=== PATIENT | female | born 1930 | race Caucasian/White ===

== ENCOUNTER → 2018-11-24 | Outpatient (CLI) | payer MEDICARE, OTHER ==
[~2018-11-24] MED LIST: FAMO20 PO; LISI5 PO; NAPR500 PO; OMEP20ER PO; OMEPRAZOLE20 MG PO; PANT20; PANT40 PO; PRED10 PO; Prinivil10 MG PO; RXPROM25 PO
== END | disposition home or self-care (01) ==
LOC: LAB SHORT 10:45 → LAB 10:45
DX: R30.0 Dysuria (principal)
CPT/HCPCS: 87077; 87086; 87186

== ENCOUNTER → 2019-02-03 | Outpatient (CLI) | payer MEDICARE, OTHER ==
[~2019-02-03] MED LIST changes: +KEFLEX500 MG PO
== END ==
LOC: LAB SHORT 21:48 → LAB 21:48
DX: R30.0 Dysuria (principal)
CPT/HCPCS: 87077; 87086; 87186

== ENCOUNTER 2020-07-30 17:16 | Emergency (ER) | payer MEDICARE, OTHER ==
[~2020-07-30] VITALS: Ht 154.9 cm; Wt 58.5 kg
[2020-07-30 18:31] LABS: Source, Urine Catheter
[2020-07-30 18:33] LABS: Appearance, Urine Cloudy (Clear); Bilirubin, Urine Neg (Neg); Blood, Urine 3+ (Neg); Color, Urine Yellow (P-Yellow); Glucose Qualitative, Urine Neg (Neg); Ketones, Urine Neg (Neg); Leukocyte Esterase, Urine 3+ (Neg); Nitrite, Urine Pos (Neg); Protein, Urine 2+ (Neg); Specific Gravity, Urine 1.015 (1.003-1.022); Urobilinogen, Urine NORM (Normal)
[2020-07-30 18:38] LABS: BASOPHILS ABSOLUTE AUTO 0.01 K/mm3 (0.00-0.23); BASOPHILS PERCENT AUTO 0 % (0-2); EOSINOPHILS ABSOLUTE AUTO 0.01 K/mm3 (0.00-0.68); EOSINOPHILS PERCENT AUTO 0 % (0-6); Hematocrit 29.1 % (33.0-51.0); Hemoglobin 9.9 g/dL (11.5-16.0); IMMATURE GRAN ABSOLUTE AUTO 0.03 K/mm3 (0.00-0.10); IMMATURE GRAN PERCENT AUTO 1 % (0-1); LYMPHOCYTES ABSOLUTE AUTO 0.45 K/mm3 (0.84-5.20); LYMPHOCYTES PERCENT AUTO 10 % (21-46); MONOCYTES ABSOLUTE AUTO 0.64 K/mm3 (0.16-1.47); MONOCYTES PERCENT AUTO 14 % (4-13); Mean Corpuscular HGB 30.3 pg (26.0-34.0); Mean Corpuscular Volume 89 fL (80-100); Mean Platelet Volume 10.1 fL (9.1-12.4); NEUTROPHILS ABSOLUTE AUTO 3.44 K/mm3 (1.96-9.15); NEUTROPHILS PERCENT AUTO 75 % (41-73); Platelet Count 126 K/mm3 (150-400); RDW Coefficient Variation 14.5 % (11.7-14.2); RDW Standard Deviation 47.7 fL (35.1-46.3); Red Blood Cell Count 3.27 M/mm3 (3.80-5.20); White Blood Cell Count 4.58 K/mm3 (4.00-11.30)
[2020-07-30] MEDS ORDERED: FUROSEMIDE20 MG PO (18:49)
[2020-07-30] MEDS ORDERED: Lisinopril10 MG PO (18:49)
[2020-07-30 18:57] LABS: White Blood Cells, Urine 50-100 /hpf (0-5)
[2020-07-30 18:58] LABS: Bacteria Many /hpf; Squamous Epithelial Cells Rare /hpf (Few)
[2020-07-30 18:59] LABS: Albumin, Blood 2.9 g/dL (3.4-5.0); Albumin/Globulin Ratio 0.8 (0.8-1.8); Bilirubin, Total 0.4 mg/dL (0.1-1.0); Bun/Creatinine Ratio 31.5 (12.0-20.0); Calcium, Blood 8.7 mg/dL (8.5-10.1); Creatinine, Blood 1.84 mg/dL (0.40-1.00); Globulin, Blood 3.6 g/dL (2.2-4.0); Potassium, Blood 4.4 mmol/L (3.5-5.5); Total Protein, Blood 6.5 g/dL (6.4-8.2)
[2020-07-30] MEDS ORDERED: CEPH500 PO (20:07)
== END 2020-07-30 21:22 | disposition home or self-care (01) ==
LOC: ER 17:16
PROVIDERS: Emergency Medicine
DX: M25.521 Pain in right elbow (principal); M25.551 Pain in right hip; N39.0 Urinary tract infection, site not specified; Z79.899 Other long term (current) drug therapy; W01.0XXA Fall on same level from slipping, tripping and stumbling without subsequent striking against object, initial encounter
CPT/HCPCS: 51702; 73030; 73070; 73502; 73562-RT; 80053; 81001; 85025; 87077; 87086; 87186; 96365-59; 99284-25; J0696

== ENCOUNTER 2020-07-31 09:41 | Emergency (ER) | payer MEDICARE, OTHER ==
[~2020-07-31] VITALS: Ht 162.6 cm; Wt 54.4 kg
[~2020-07-31 09:41] MED LIST changes: +CEPH500 PO; +FUROSEMIDE20 MG PO; +Lisinopril10 MG PO
[2020-07-31 10:51] LABS: BASOPHILS PERCENT AUTO 0 % (0-2); EOSINOPHILS ABSOLUTE AUTO 0.01 K/mm3 (0.00-0.68); EOSINOPHILS PERCENT AUTO 0 % (0-6); Hematocrit 29.2 % (33.0-51.0); Hemoglobin 9.6 g/dL (11.5-16.0); IMMATURE GRAN ABSOLUTE AUTO 0.03 K/mm3 (0.00-0.10); IMMATURE GRAN PERCENT AUTO 1 % (0-1); LYMPHOCYTES ABSOLUTE AUTO 0.41 K/mm3 (0.84-5.20); LYMPHOCYTES PERCENT AUTO 10 % (21-46); MONOCYTES ABSOLUTE AUTO 0.58 K/mm3 (0.16-1.47); MONOCYTES PERCENT AUTO 14 % (4-13); Mean Corpuscular HGB 29.4 pg (26.0-34.0); Mean Corpuscular HGB Conc 32.9 g/dL (31.5-36.5); Mean Corpuscular Volume 89 fL (80-100); Mean Platelet Volume 10.4 fL (9.1-12.4); NEUTROPHILS ABSOLUTE AUTO 3.16 K/mm3 (1.96-9.15); NEUTROPHILS PERCENT AUTO 76 % (41-73); Platelet Count 140 K/mm3 (150-400); RDW Coefficient Variation 14.6 % (11.7-14.2); RDW Standard Deviation 47.5 fL (35.1-46.3); Red Blood Cell Count 3.27 M/mm3 (3.80-5.20); White Blood Cell Count 4.19 K/mm3 (4.00-11.30)
[2020-07-31 11:09] LABS: Alanine Aminotransfer (ALT/SGP 25 U/L (12-78); Albumin, Blood 2.8 g/dL (3.4-5.0); Albumin/Globulin Ratio 0.8 (0.8-1.8); Alk Phos 70 U/L (50-136); Anion Gap 6 mmol/L (6-16); Aspartate Aminotrans (AST/SGOT 26 U/L (12-37); Bilirubin, Total 0.3 mg/dL (0.1-1.0); Blood Urea Nitrogen 51 mg/dL (8-24); Bun/Creatinine Ratio 29.5 (12.0-20.0); CO2, Blood 24 mmol/L (21-32); Calcium, Blood 8.5 mg/dL (8.5-10.1); Chloride, Blood 102 mmol/L (98-108); Creatinine, Blood 1.73 mg/dL (0.40-1.00); Globulin, Blood 3.6 g/dL (2.2-4.0); Glomerular Filtration Rate 30 (60-); Glucose, Blood 112 mg/dL (70-99); Potassium, Blood 4.3 mmol/L (3.5-5.5); Sodium, Blood 132 mmol/L (136-145); Total Protein, Blood 6.4 g/dL (6.4-8.2); Troponin I <0.015 ng/mL (0.000-0.040)
== END 2020-07-31 12:40 | disposition home or self-care (01) ==
LOC: ER 09:41
PROVIDERS: Emergency Medicine
DX: S00.83XA Contusion of other part of head, initial encounter (principal); Z79.899 Other long term (current) drug therapy; W01.10XA Fall on same level from slipping, tripping and stumbling with subsequent striking against unspecified object, initial encounter
CPT/HCPCS: 80053; 84484; 85025; 93005; 93010; 96365; 99285-25; J0696; J7030

== ENCOUNTER 2020-08-28 21:11 | Inpatient (IN) | payer MEDICARE, OTHER ==
[~2020-08-28] VITALS: Ht 167.6 cm; Wt 58.5 kg
[2020-08-28] MEDS ORDERED: PANT20 PO (21:26)
[2020-08-28 21:36] LABS: BASOPHILS ABSOLUTE AUTO 0.01 K/mm3 (0.00-0.23); BASOPHILS PERCENT AUTO 0 % (0-2); EOSINOPHILS ABSOLUTE AUTO 0.07 K/mm3 (0.00-0.68); EOSINOPHILS PERCENT AUTO 3 % (0-6); Hematocrit 29.9 % (33.0-51.0); IMMATURE GRAN ABSOLUTE AUTO 0.01 K/mm3 (0.00-0.10); IMMATURE GRAN PERCENT AUTO 0 % (0-1); LYMPHOCYTES ABSOLUTE AUTO 0.56 K/mm3 (0.84-5.20); LYMPHOCYTES PERCENT AUTO 24 % (21-46); MONOCYTES ABSOLUTE AUTO 0.39 K/mm3 (0.16-1.47); MONOCYTES PERCENT AUTO 17 % (4-13); Mean Corpuscular HGB 29.8 pg (26.0-34.0); Mean Corpuscular HGB Conc 33.4 g/dL (31.5-36.5); Mean Corpuscular Volume 89 fL (80-100); Mean Platelet Volume 9.6 fL (9.1-12.4); NEUTROPHILS PERCENT AUTO 56 % (41-73); Platelet Count 106 K/mm3 (150-400); RDW Coefficient Variation 15.1 % (11.7-14.2); RDW Standard Deviation 49.2 fL (35.1-46.3); Red Blood Cell Count 3.36 M/mm3 (3.80-5.20); White Blood Cell Count 2.34 K/mm3 (4.00-11.30)
[2020-08-28 21:47] LABS: Albumin, Blood 3.2 g/dL (3.4-5.0); Bilirubin, Total 0.4 mg/dL (0.1-1.0); Calcium, Blood 8.5 mg/dL (8.5-10.1); Creatinine, Blood 1.24 mg/dL (0.40-1.00); Globulin, Blood 3.1 g/dL (2.2-4.0); Potassium, Blood 3.9 mmol/L (3.5-5.5); Total Protein, Blood 6.3 g/dL (6.4-8.2)
[2020-08-28] MEDS ORDERED: Vitamin D2000 UNIT PO (22:41)
[2020-08-28] MEDS ORDERED: TAGRISSO80 MG PO (22:41)
[2020-08-29 04:08] LABS: BASOPHILS PERCENT AUTO 0 % (0-2); EOSINOPHILS ABSOLUTE AUTO 0.02 K/mm3 (0.00-0.68); EOSINOPHILS PERCENT AUTO 1 % (0-6); Hematocrit 31.9 % (33.0-51.0); Hemoglobin 10.6 g/dL (11.5-16.0); IMMATURE GRAN ABSOLUTE AUTO 0.01 K/mm3 (0.00-0.10); IMMATURE GRAN PERCENT AUTO 0 % (0-1); LYMPHOCYTES ABSOLUTE AUTO 0.56 K/mm3 (0.84-5.20); LYMPHOCYTES PERCENT AUTO 18 % (21-46); MONOCYTES PERCENT AUTO 13 % (4-13); Mean Corpuscular HGB 29.8 pg (26.0-34.0); Mean Corpuscular HGB Conc 33.2 g/dL (31.5-36.5); Mean Corpuscular Volume 90 fL (80-100); Mean Platelet Volume 10.1 fL (9.1-12.4); NEUTROPHILS ABSOLUTE AUTO 2.14 K/mm3 (1.96-9.15); NEUTROPHILS PERCENT AUTO 68 % (41-73); Platelet Count 89 K/mm3 (150-400); RDW Coefficient Variation 15.1 % (11.7-14.2); RDW Standard Deviation 49.6 fL (35.1-46.3); Red Blood Cell Count 3.56 M/mm3 (3.80-5.20); White Blood Cell Count 3.13 K/mm3 (4.00-11.30)
[2020-08-29 04:26] LABS: Albumin, Blood 3.2 g/dL (3.4-5.0); Bilirubin, Total 0.4 mg/dL (0.1-1.0); Bun/Creatinine Ratio 23.7 (12.0-20.0); Calcium, Blood 8.5 mg/dL (8.5-10.1); Creatinine, Blood 1.18 mg/dL (0.40-1.00); Globulin, Blood 3.1 g/dL (2.2-4.0); Potassium, Blood 3.8 mmol/L (3.5-5.5); Total Protein, Blood 6.3 g/dL (6.4-8.2)
[2020-08-29 06:02] LABS: SARS-Cov-2 (COVID-19) PCR, MMC NEGATIVE (NEGATIVE)
[2020-08-29 06:30] LABS: Source, Urine Catheter
[2020-08-29 06:39] LABS: Appearance, Urine Clear (Clear); Bilirubin, Urine Neg (Neg); Blood, Urine 4+ (Neg); Color, Urine Yellow (P-Yellow); Glucose Qualitative, Urine Neg (Neg); Ketones, Urine Neg (Neg); Leukocyte Esterase, Urine Neg (Neg); Nitrite, Urine Neg (Neg); Protein, Urine 2+ (Neg); Urobilinogen, Urine NORM (Normal)
[2020-08-29 07:05] LABS: Red Blood Cells, Urine TNTC /hpf (0-2)
[2020-08-29 07:06] LABS: Squamous Epithelial Cells Rare /hpf (Few)
[2020-08-29 07:07] LABS: Bacteria Rare /hpf; Hyaline Casts Rare /lpf (0-2); White Blood Cells, Urine Rare /hpf (0-5)
[2020-08-29 07:08] LABS: Mucus Light (0-Heavy)
[2020-08-29] MEDS ORDERED: B 12 (07:51)
[2020-08-29] MEDS ORDERED: CALCIUM (07:52)
--- NOTE | 2020-08-29 08:15 | NUR ---
SUMMARY ADMIT FOR ORTHO CX TODAY AND POSSIBLE OR.DAUGHTER IN LAW AT BEDSIDE. SUPPORTIVE. PT HAS HX DEMENTIA AND LIVES WITH SON AND HIS CURRENTLY. SON AND DAUGHTER IN LAW WILL BE TO HOSPITAL IN AM TO SPEAK WITH DOCTORS AND ASSSIT IN DECISIONS FOR PT REGARDING SURGERY .
--- NOTE | 2020-08-29 17:16 | NUR ---
PT TO SDS FROM ROOM 214. REPORTS NPO SINCE 08/28 AT 1700. MEDICATED c FENT BRANCH SPECIALIST, PLACED ON . History, Chart, Medications and Allergies reviewed before start of procedure. Lungs clear T/O to Auscultation.
--- NOTE | 2020-08-29 18:38 | NUR ---
08/29/20 183 Satnam Matias PATIENT ARRIVED TO OR WITH REVELES CATH DRAINING SILVIA COLORED URINE WITH A STREAK OF BLOOD IN THE LINE. BAG EMPTIED FOR 600 ML
--- NOTE | 2020-08-29 19:16 | NUR ---
SHIFT SUMMARY PT SOMEWHAT CONFUSED AND RESTING IN BED DURING MORNING. WENT TO OR WITH DR BARBOUR FOR RIGHT HIP FX REPAIR. RIGHT LEG EXTERNALLY ROTATED AND SHORTER THAN LEFT. MEDICATED WITH IV PAIN MEDS FOR PAIN. IV FLUIDS RUNNING. REVELES IN PLACE. MEPILEX PLACED TO SACRUM. FAMILY IN ROOM. REPORT GIVEN TO POWERHOUSE ENGINEER RN.
--- NOTE | 2020-08-29 22:03 | NUR ---
PT ARRIVED TO ICU ON 10LPM O2 VIA NON-REBREATHER c O2 SATS OF 98%. PT FULLY ALERT, MOVING ALL EXTREMITIES, DENIES PAIN. O2 TITRATED DOWN TO NC @ LPM c O2 SATS >90%. PT USING IC AND FLUTTER VALVE. TRANSFERRED TO ROOM 214.
--- NOTE | 2020-08-30 04:30 | NUR ---
SHIFT SUMMARY POD#1 RIGHT HEMIARTHROPLASTY. CONFUSED/COOPERATIVE. PT DENIES DISCOMFORT AT REST, DENIES PAIN MEDICATIONS. NO NAUSEA/EMESIS. AQUACEL TO RIGHT HIP C/D/I. MOVES TOES WELL BLE, DENIES N/T, CAP REFILL BRISK. O2 DOWN TO 2L VIA NC, CONTINUE TO ENCOURAGE PT TO KEEP IN NOSE + DEEP BREATHING / INCENTIVE SPIROMETRY USE. BED ALARM ON FOR SAFETY. CALL LIGHT IN REACH. PT RESTING INTERMITTENTLY AT THIS TIME.
[2020-08-30 09:52] LABS: BASOPHILS PERCENT AUTO 0 % (0-2); EOSINOPHILS PERCENT AUTO 0 % (0-6); Hematocrit 31.2 % (33.0-51.0); Hemoglobin 10.2 g/dL (11.5-16.0); IMMATURE GRAN ABSOLUTE AUTO 0.03 K/mm3 (0.00-0.10); IMMATURE GRAN PERCENT AUTO 1 % (0-1); LYMPHOCYTES ABSOLUTE AUTO 0.56 K/mm3 (0.84-5.20); LYMPHOCYTES PERCENT AUTO 9 % (21-46); MONOCYTES ABSOLUTE AUTO 0.47 K/mm3 (0.16-1.47); MONOCYTES PERCENT AUTO 7 % (4-13); Mean Corpuscular HGB 29.7 pg (26.0-34.0); Mean Corpuscular HGB Conc 32.7 g/dL (31.5-36.5); Mean Corpuscular Volume 91 fL (80-100); Mean Platelet Volume 10.1 fL (9.1-12.4); NEUTROPHILS ABSOLUTE AUTO 5.35 K/mm3 (1.96-9.15); NEUTROPHILS PERCENT AUTO 84 % (41-73); Platelet Count 94 K/mm3 (150-400); RDW Coefficient Variation 15.4 % (11.7-14.2); RDW Standard Deviation 51.2 fL (35.1-46.3); Red Blood Cell Count 3.44 M/mm3 (3.80-5.20); White Blood Cell Count 6.41 K/mm3 (4.00-11.30)
[2020-08-30 10:15] LABS: Albumin, Blood 2.8 g/dL (3.4-5.0); Anion Gap 5 mmol/L (6-16); Blood Urea Nitrogen 24 mg/dL (8-24); CO2, Blood 27 mmol/L (21-32); Calcium, Blood 8.3 mg/dL (8.5-10.1); Chloride, Blood 106 mmol/L (98-108); Creatinine, Blood 1.09 mg/dL (0.40-1.00); Glomerular Filtration Rate 50 (60-); Glucose, Blood 139 mg/dL (70-99); Phosphorus, Blood 2.8 mg/dL (2.5-4.9); Potassium, Blood 3.5 mmol/L (3.5-5.5); Sodium, Blood 138 mmol/L (136-145)
--- NOTE | 2020-08-30 17:24 | NUR ---
SHIFT SUMMARY PT POD 1 R HIP FX REPAIR. AQUACEL DRESSING TO R HIP C/D/I. PT MEDICATED ONCE FOR PAIN PER EMAR. REVELES REMOVED BY PT THIS AM, UNABLE TO VOID. BLADDER SCAN SHOWED GREATER THAN 400, STRAIGHT CATH DONE WITH 425ML DARK YELLOW URINE DRAINED.
--- NOTE | 2020-08-31 01:26 | NUR ---
URINE RETENTION BLADDER SCAN NOTED, PT REFUSING STRAIGHT CATH AT THIS TIME. PT THEN PROCEDED TO TRY AND GET OOB W/O ASSISTANCE. RESISTANT TO CARE + USE OF GATE BELT. AFTER MUCH CONVERSATION, PT RELUCTANTLY AGREED TO GAIT BELT USE. UP TO BSC WITH 2 PERSON MODERATE ASSIST, BACK TO BED. MODERATE VOID IN ATTENDS + 250cc VOID IN BSC. BED ALARM FOR SAFETY. CALL LIGHT IN REACH.
--- NOTE | 2020-08-31 05:34 | NUR ---
SHIFT SUMMARY POD#2. CONFUSED/COOPERATIVE AT TIMES. DISCOMFORT DECRASED WITH TYLENOL Q6H + X1 NORCO THIS AM FOR BREAKTHROUGH. NO NAUSEA/EMESIS. DRESSING TO RIGHT HIP C/D/I. PPP, DENIES N/T BLE, MOVES ALL TOES WELL. PT CONFUSED THIS NOC SHIFT, REFUSING CARE AT TIMES, BED ALARM ON FOR SAFETY. VSS, ON RA, RESPIRATIONS EVEN/UNLABORED. URINE RETENTION NOTED, PT REFUSING TO BE STRAIGHT CATHED EARLIER THIS SHIFT, NOW GETTING UP TO BSC FREQUENTLY THIS AM WITH 100 TO 250cc VOIDS, WILL BLADDER SCAN THIS AM TO CONFIRM ADEQUATE VOIDS. PT CURRENTLY UP TO BSC AT THIS TIME WITH TELECOMMUNICATION TOWER TECHNICIAN IN ROOM.
[2020-08-31 06:51] LABS: BASOPHILS PERCENT AUTO 0 % (0-2); EOSINOPHILS ABSOLUTE AUTO 0.02 K/mm3 (0.00-0.68); EOSINOPHILS PERCENT AUTO 1 % (0-6); Hematocrit 27.8 % (33.0-51.0); Hemoglobin 9.2 g/dL (11.5-16.0); IMMATURE GRAN ABSOLUTE AUTO 0.02 K/mm3 (0.00-0.10); IMMATURE GRAN PERCENT AUTO 1 % (0-1); LYMPHOCYTES ABSOLUTE AUTO 0.38 K/mm3 (0.84-5.20); LYMPHOCYTES PERCENT AUTO 11 % (21-46); MONOCYTES PERCENT AUTO 12 % (4-13); Mean Corpuscular HGB 29.6 pg (26.0-34.0); Mean Corpuscular HGB Conc 33.1 g/dL (31.5-36.5); Mean Corpuscular Volume 89 fL (80-100); Mean Platelet Volume 10.7 fL (9.1-12.4); NEUTROPHILS PERCENT AUTO 76 % (41-73); Platelet Count 92 K/mm3 (150-400); RDW Coefficient Variation 15.4 % (11.7-14.2); RDW Standard Deviation 50.5 fL (35.1-46.3); Red Blood Cell Count 3.11 M/mm3 (3.80-5.20); White Blood Cell Count 3.42 K/mm3 (4.00-11.30)
--- NOTE | 2020-08-31 18:01 | NUR ---
SHIFT SUMMARY PT POD 2 R HIP REPAIR. AQUACEL DRESSING C/D/I, NO REDNESS PRESENT AROUND DRESSING, SMALL AMT FIRMNESS PRESENT ABOVE BANDAGE. PT DID HAVE TEMP 101.0 ORAL THIS EVENING WITH HR 117, NO PREVIOUS DOCUMENTED TEMP OR TACHY HR. MESSAGE LEFT FOR MD TO CALL. PT CONFUSED AND AGGITATED T/O SHIFT, ATTEMPTING TO GET UP AND WALK, DOES NOT UNDERSTAND OR FOLLOW WEIGHT BEARING PRECAUTIONS. PT VOIDING SMALL AMTS AT A TIME T/O SHIFT.
[2020-09-01 04:50] LABS: BASOPHILS PERCENT AUTO 0 % (0-2); EOSINOPHILS ABSOLUTE AUTO 0.05 K/mm3 (0.00-0.68); EOSINOPHILS PERCENT AUTO 2 % (0-6); Hematocrit 28.2 % (33.0-51.0); Hemoglobin 9.3 g/dL (11.5-16.0); IMMATURE GRAN ABSOLUTE AUTO 0.03 K/mm3 (0.00-0.10); IMMATURE GRAN PERCENT AUTO 1 % (0-1); LYMPHOCYTES ABSOLUTE AUTO 0.46 K/mm3 (0.84-5.20); LYMPHOCYTES PERCENT AUTO 16 % (21-46); MONOCYTES ABSOLUTE AUTO 0.41 K/mm3 (0.16-1.47); MONOCYTES PERCENT AUTO 15 % (4-13); Mean Corpuscular HGB 29.8 pg (26.0-34.0); Mean Corpuscular Volume 90 fL (80-100); Mean Platelet Volume 9.9 fL (9.1-12.4); NEUTROPHILS ABSOLUTE AUTO 1.85 K/mm3 (1.96-9.15); NEUTROPHILS PERCENT AUTO 66 % (41-73); Platelet Count 99 K/mm3 (150-400); RDW Coefficient Variation 15.4 % (11.7-14.2); RDW Standard Deviation 50.9 fL (35.1-46.3); Red Blood Cell Count 3.12 M/mm3 (3.80-5.20)
[2020-09-01 05:05] LABS: Albumin, Blood 2.5 g/dL (3.4-5.0); Anion Gap 5 mmol/L (6-16); Blood Urea Nitrogen 22 mg/dL (8-24); Bun/Creatinine Ratio 21.6 (12.0-20.0); CO2, Blood 28 mmol/L (21-32); Calcium, Blood 8.5 mg/dL (8.5-10.1); Chloride, Blood 105 mmol/L (98-108); Creatinine, Blood 1.02 mg/dL (0.40-1.00); Glomerular Filtration Rate 54 (60-); Glucose, Blood 99 mg/dL (70-99); Phosphorus, Blood 2.3 mg/dL (2.5-4.9); Potassium, Blood 3.5 mmol/L (3.5-5.5); Sodium, Blood 138 mmol/L (136-145)
--- NOTE | 2020-09-01 05:43 | NUR ---
SHIFT SUMMARY POD#3 RIGHT HEMICOLECTOMY. CONFUSED/UNCOOPERATIVE WITH CARE AT TIMES. DISCOMFORT CONTROLLED WITH X1 TYLENOL THIS SHIFT. NO NAUSEA/EMESIS. DRESSING TO RIGHT HIP C/D/I. PT UP TO BSC TO VOID MULTIPLE TIMES THIS SHIFT, TTWB TO RLE. RESTED WELL WITH BLE ELEVATED IN RECLINER CHAIR WITH TAB ALARM + PRESSURE PAD ALARM FOR SAFETY. PT CONTINUES TO REFUSE BLADDER SCAN THIS AM, CONTINUE TO EDUCATED + ENCOURAGE COOPERATION WITH CARE.
--- NOTE | 2020-09-01 08:11 | NUR ---
OOB TO CHAIR, DENIES ANY PAIN OR ANY NUMBNESS OR TINGLING, VOIDED 100CC IN BSC THIS AM, PT EATING BREAKFAST, TAB ALARM IN PLACE, CONT. TO MONITOR FOR ANY CHANGES.
[2020-09-01 14:39] LABS: Source, Urine Clean Catch
[2020-09-01 14:57] LABS: Appearance, Urine Clear (Clear); Bilirubin, Urine Neg (Neg); Blood, Urine 1+ (Neg); Color, Urine Yellow (P-Yellow); Glucose Qualitative, Urine Neg (Neg); Ketones, Urine Neg (Neg); Leukocyte Esterase, Urine Neg (Neg); Nitrite, Urine Neg (Neg); Protein, Urine 1+ (Neg); Urobilinogen, Urine NORM (Normal)
[2020-09-01 15:08] LABS: Bacteria Few /hpf; Hyaline Casts 0-2 /lpf (0-2); Red Blood Cells, Urine 0-2 /hpf (0-2); Squamous Epithelial Cells Few /hpf (Few); White Blood Cells, Urine Rare /hpf (0-5)
--- NOTE | 2020-09-01 17:26 | NUR ---
SUMMARY 1 PERSON ASSIST TO BSC AND CHAIR, TOLERATED WELL, DENIES ANY PAIN, PT HAD A BM TODAY, DSG C/D/I, NO ACUTE CHANGES THIS SHIFT.
[2020-09-02 04:51] LABS: Hematocrit 26.8 % (33.0-51.0); Hemoglobin 8.7 g/dL (11.5-16.0); Mean Corpuscular HGB 29.1 pg (26.0-34.0); Mean Corpuscular HGB Conc 32.5 g/dL (31.5-36.5); Mean Corpuscular Volume 90 fL (80-100); Mean Platelet Volume 9.6 fL (9.1-12.4); Platelet Count 101 K/mm3 (150-400); RDW Coefficient Variation 15.3 % (11.7-14.2); RDW Standard Deviation 50.6 fL (35.1-46.3); Red Blood Cell Count 2.99 M/mm3 (3.80-5.20); White Blood Cell Count 2.08 K/mm3 (4.00-11.30)
[2020-09-02 05:15] LABS: Albumin, Blood 2.3 g/dL (3.4-5.0); Anion Gap 5 mmol/L (6-16); Blood Urea Nitrogen 25 mg/dL (8-24); Bun/Creatinine Ratio 25.4 (12.0-20.0); CO2, Blood 28 mmol/L (21-32); Calcium, Blood 8.2 mg/dL (8.5-10.1); Chloride, Blood 105 mmol/L (98-108); Creatinine, Blood 0.98 mg/dL (0.40-1.00); Glomerular Filtration Rate 57 (60-); Glucose, Blood 98 mg/dL (70-99); Phosphorus, Blood 2.6 mg/dL (2.5-4.9); Potassium, Blood 3.8 mmol/L (3.5-5.5); Sodium, Blood 138 mmol/L (136-145)
--- NOTE | 2020-09-02 06:10 | NUR ---
POD 4 S/P RIGHT ROM HIP REPAIR. PT VSS T/O NIGHT. DRESSING CDI. PAIN MGD W/TYLENOL W/REP RELIEF. PT UP TO BSC OOB W/FWW+1 ASSIST. NEEDS REMINDING OF WBS. PT FORGETFUL AT TIMES, IS PLEASANT AND COOPERATIVE W/CARE. BED ALARM ON FOR SAFETY. AWAITING SNF DC PLANNING.
--- NOTE | 2020-09-02 17:48 | NUR ---
SUMMARY UP TO CHAIR, DENIES ANY PAIN, TOLERATING DIET WELL, DENIES ANY NAUSEA, REPORTS FEELING BETTER, DSG C/D/I, UP TO CHAIR AND BSC W/ 1-2 PERSON ASSIST WITH CUEING, NO ACUTE CHANGES THIS SHIFT.
--- NOTE | 2020-09-03 04:32 | NUR ---
POD 5 S/P RIGHT ROM HIP REPAIR. PT VSS T/O NIGHT. PT WAS ANXIOUS AND AGITATED FIRST HALF OF SHIFT, IS MUCH MORE CALM AND COOPERATIVE THIS AM. DRESSING CDI. PAIN MGD W/TYLENOL. PT HAD NO C/O N/V, IS VOIDING URINE W/O DIFFICULTY. PT UP W/FWW+1 ASSIST, NEEDS REMINDING OF TT WBS. TAB AND CHAIR ALARMS ON. CONT TO AWAIT SNF PLANNING.
[2020-09-03 04:53] LABS: Hematocrit 27.8 % (33.0-51.0); Hemoglobin 9.1 g/dL (11.5-16.0); Mean Corpuscular HGB 29.4 pg (26.0-34.0); Mean Corpuscular HGB Conc 32.7 g/dL (31.5-36.5); Mean Corpuscular Volume 90 fL (80-100); Mean Platelet Volume 9.3 fL (9.1-12.4); Platelet Count 112 K/mm3 (150-400); RDW Coefficient Variation 15.3 % (11.7-14.2); RDW Standard Deviation 50.4 fL (35.1-46.3); Red Blood Cell Count 3.09 M/mm3 (3.80-5.20); White Blood Cell Count 2.09 K/mm3 (4.00-11.30)
[2020-09-03 05:18] LABS: Albumin, Blood 2.6 g/dL (3.4-5.0); Albumin/Globulin Ratio 0.8 (0.8-1.8); Bilirubin, Total 0.4 mg/dL (0.1-1.0); Bun/Creatinine Ratio 23.8 (12.0-20.0); Calcium, Blood 8.4 mg/dL (8.5-10.1); Creatinine, Blood 1.01 mg/dL (0.40-1.00); Globulin, Blood 3.2 g/dL (2.2-4.0); Potassium, Blood 3.3 mmol/L (3.5-5.5); Total Protein, Blood 5.8 g/dL (6.4-8.2)
--- NOTE | 2020-09-03 11:35 | NUR ---
STAT CONSULT STAT CONSULT FOR DR SAM FAXED TO ER ATTN CRISIS UNIT.
--- NOTE | 2020-09-03 16:55 | NUR ---
SHIFT SUMMARY PT PLEASANTLY CONFUSED THROUGHOUT SHIFT. SOMETIMES TRIES TO GET OUT OF CHAIR. TAB ALARM AND CHAIR ALARM IN PLACE. DOES NOT MAINTAIN TOE TOUCH WB. AQUACEL TO RIGHT HIP. TOLERATING REGULAR DIET AND FLUIDS. INCONTINENT OF URINE. WAITING FOR SNF PLACEMENT.
--- NOTE | 2020-09-04 05:34 | NUR ---
PT CONFUSED PER BASELINE. EASILY REDIRECTABLE. VSS ON RA. DENIES PAIN. UP TO BSC W/ FWW, GAITBELT, AND 2 PERSON ASSIST. PT IMPULSIVE, TAB AND BED ALARM IN PLACE. SLEEPING B/W CARE.
[2020-09-04 07:17] LABS: BASOPHILS PERCENT AUTO 0 % (0-2); EOSINOPHILS ABSOLUTE AUTO 0.05 K/mm3 (0.00-0.68); EOSINOPHILS PERCENT AUTO 3 % (0-6); Hematocrit 27.9 % (33.0-51.0); IMMATURE GRAN ABSOLUTE AUTO 0.02 K/mm3 (0.00-0.10); IMMATURE GRAN PERCENT AUTO 1 % (0-1); LYMPHOCYTES ABSOLUTE AUTO 0.41 K/mm3 (0.84-5.20); LYMPHOCYTES PERCENT AUTO 23 % (21-46); MONOCYTES ABSOLUTE AUTO 0.38 K/mm3 (0.16-1.47); MONOCYTES PERCENT AUTO 21 % (4-13); Mean Corpuscular HGB Conc 32.3 g/dL (31.5-36.5); Mean Corpuscular Volume 90 fL (80-100); Mean Platelet Volume 9.9 fL (9.1-12.4); NEUTROPHILS ABSOLUTE AUTO 0.94 K/mm3 (1.96-9.15); NEUTROPHILS PERCENT AUTO 52 % (41-73); Platelet Count 114 K/mm3 (150-400)
[2020-09-04 07:46] LABS: Bun/Creatinine Ratio 21.7 (12.0-20.0); Calcium, Blood 8.3 mg/dL (8.5-10.1); Creatinine, Blood 1.06 mg/dL (0.40-1.00); Magnesium, Blood 1.8 mg/dL (1.6-2.4); Potassium, Blood 3.7 mmol/L (3.5-5.5)
[2020-09-04 15:30] LABS: SARS-Cov-2 (COVID-19) PCR, MMC NEGATIVE (NEGATIVE)
--- NOTE | 2020-09-04 16:07 | NUR ---
REPORT CALLED TO KASSANDRA AT [facility]. NO FURTHER QUESTIONS AT THIS TIME.
--- NOTE | 2020-09-04 17:08 | NUR ---
PT LEFT VIA WHEELCHAIR TO [facility], BELONGINGS SENT WITH PT AND TEARER PRESS CLIPPING. EXTRA AQUACEL DRESSINGS SENT WITH PT. PT HAS BEEN 1-2 PERSON ASSIST WITH FWW DURING SHIFT. MULT BM TODAY, VOIDING WELL. TOLERATING PO WITH NO NAUSEA. DENIES PAIN DURING SHIFT. AQUACEL ON R HIP CDI. PLEASENTLY CONFUSED DURING SHIFT ATTEMPTS TO USE CALL LIGHT.
== END 2020-09-04 17:00 | DRG 521 ==
LOC: ER 21:11 → SURS 21:12
PROVIDERS: Emergency Medicine; Internal Medicine; Orthopaedic Surgery; ADMIT Internal Medicine
PROC: 0SRR0JZ Replacement of Right Hip Joint, Femoral Surface with Synthetic Substitute, Open Approach (ICD-10-PCS; principal; 2020-08-29 18:15)
DX: S72.001A Fracture of unspecified part of neck of right femur, initial encounter for closed fracture (principal); D61.810 Antineoplastic chemotherapy induced pancytopenia; J18.9 Pneumonia, unspecified organism; C34.90 Malignant neoplasm of unspecified part of unspecified bronchus or lung; Z20.822 Contact with and (suspected) exposure to COVID-19; I10 Essential (primary) hypertension; K21.9 Gastro-esophageal reflux disease without esophagitis; E11.9 Type 2 diabetes mellitus without complications; M81.0 Age-related osteoporosis without current pathological fracture; F03.90 Unspecified dementia, unspecified severity, without behavioral disturbance, psychotic disturbance, mood disturbance, and anxiety; R31.0 Gross hematuria; E83.39 Other disorders of phosphorus metabolism; E87.6 Hypokalemia; T45.1X5A Adverse effect of antineoplastic and immunosuppressive drugs, initial encounter; R09.02 Hypoxemia; Z90.49 Acquired absence of other specified parts of digestive tract; Z79.899 Other long term (current) drug therapy; W07.XXXA Fall from chair, initial encounter
CPT/HCPCS: 36415; 71045; 72170; 73502; 73552; 80048; 80053; 80069; 81001; 82947; 83735; 84145; 85025; 85027; 87040; 93005; 93010; 94760; 96374; 96375; 97116; 97162; 99285-25; A9270; C1713; C1776; C9113; J0171; J0461; J0690; J0735; J1100; J1650; J1885; J2175; J2270; J2370; J2405; J2704; J2795; J3010; J7030; J7120; U0004

== ENCOUNTER 2021-01-31 14:49 | Emergency (ER) | payer MEDICARE, OTHER ==
[~2021-01-31] VITALS: Ht 157.5 cm; Wt 63.5 kg
[~2021-01-31 14:49] MED LIST changes: +B 12; +CALCIUM; +PANT20 PO; +TAGRISSO80 MG PO; +Vitamin D2000 UNIT PO
[2021-01-31 16:05] LABS: Base Excess Venous 4.3 mmol/L; Bicarbonate Venous 27.1 mmol/L (24.0-30.0); PCO2 Venous 51.5 mmHg (38-42); PO2 Venous 44.3 mmHg (38-42); pH Blood Venous 7.37 (7.34-7.37)
[2021-01-31 16:08] LABS: BASOPHILS PERCENT AUTO 0 % (0-2); EOSINOPHILS PERCENT AUTO 2 % (0-6); Hemoglobin 10.5 g/dL (11.5-16.0); IMMATURE GRAN ABSOLUTE AUTO 0.02 K/mm3 (0.00-0.10); IMMATURE GRAN PERCENT AUTO 0 % (0-1); LYMPHOCYTES ABSOLUTE AUTO 1.05 K/mm3 (0.84-5.20); LYMPHOCYTES PERCENT AUTO 23 % (21-46); MONOCYTES ABSOLUTE AUTO 0.46 K/mm3 (0.16-1.47); MONOCYTES PERCENT AUTO 10 % (4-13); Mean Corpuscular HGB 28.5 pg (26.0-34.0); Mean Corpuscular HGB Conc 31.8 g/dL (31.5-36.5); Mean Corpuscular Volume 89 fL (80-100); Mean Platelet Volume 8.8 fL (9.1-12.4); NEUTROPHILS ABSOLUTE AUTO 3.04 K/mm3 (1.96-9.15); NEUTROPHILS PERCENT AUTO 65 % (41-73); Platelet Count 173 K/mm3 (150-400); RDW Coefficient Variation 16.3 % (11.7-14.2); RDW Standard Deviation 53.7 fL (35.1-46.3); Red Blood Cell Count 3.69 M/mm3 (3.80-5.20); White Blood Cell Count 4.67 K/mm3 (4.00-11.30)
[2021-01-31 16:25] LABS: Alanine Aminotransfer (ALT/SGP 23 U/L (12-78); Albumin, Blood 2.8 g/dL (3.4-5.0); Albumin/Globulin Ratio 0.7 (0.8-1.8); Alk Phos 112 U/L (50-136); Anion Gap 3 mmol/L (6-16); Aspartate Aminotrans (AST/SGOT 19 U/L (12-37); Bilirubin, Total 0.2 mg/dL (0.1-1.0); Blood Urea Nitrogen 35 mg/dL (8-24); Bun/Creatinine Ratio 25.2 (12.0-20.0); CO2, Blood 30 mmol/L (21-32); Calcium, Blood 8.3 mg/dL (8.5-10.1); Chloride, Blood 105 mmol/L (98-108); Creatinine, Blood 1.39 mg/dL (0.40-1.00); Globulin, Blood 4.2 g/dL (2.2-4.0); Glomerular Filtration Rate 36 (60-); Glucose, Blood 135 mg/dL (70-99); Potassium, Blood 4.1 mmol/L (3.5-5.5); Sodium, Blood 138 mmol/L (136-145); Troponin I <0.015 ng/mL (0.000-0.040)
[2021-01-31 16:42] LABS: Influenza A, PCR NEGATIVE (NEGATIVE); Influenza B, PCR NEGATIVE (NEGATIVE); Resp Syncytial Virus, PCR NEGATIVE (NEGATIVE); SARS-Cov-2 (COVID-19) PCR, MMC NEGATIVE (NEGATIVE)
[2021-01-31 17:48] LABS: Source, Urine Clean Catch
[2021-01-31 18:06] LABS: Bilirubin, Urine Neg (Neg); Blood, Urine 2+ (Neg); Color, Urine Yellow (P-Yellow); Glucose Qualitative, Urine Neg (Neg); Ketones, Urine Neg (Neg); Leukocyte Esterase, Urine 3+ (Neg); Nitrite, Urine Neg (Neg); Protein, Urine 2+ (Neg); Urobilinogen, Urine NORM (Normal); pH, Urine 6.5 (5.0-8.0)
[2021-01-31 19:23] LABS: Appearance, Urine Hazy (Clear); White Blood Cells, Urine 50-100 /hpf (0-5)
[2021-01-31 19:31] LABS: Bacteria Many /hpf; Squamous Epithelial Cells Few /hpf (Few)
== END 2021-01-31 20:50 | disposition home or self-care (01) ==
LOC: ER 14:49
PROVIDERS: Student in an Organized Health Care Education/Training Program
DX: R40.4 Transient alteration of awareness (principal); R79.89 Other specified abnormal findings of blood chemistry; D64.9 Anemia, unspecified; I10 Essential (primary) hypertension; K21.9 Gastro-esophageal reflux disease without esophagitis; E11.9 Type 2 diabetes mellitus without complications; Z20.822 Contact with and (suspected) exposure to COVID-19; Z91.013 Allergy to seafood; Z79.899 Other long term (current) drug therapy
CPT/HCPCS: 0241U; 70450; 71045; 80053; 81001; 82803; 83735; 84145; 84484; 85025; 93005; 93010; 99285-25; J7030

== ENCOUNTER 2021-05-29 01:13 | Emergency (ER) | payer MEDICARE, OTHER ==
[~2021-05-29] VITALS: Ht 170.2 cm; Wt 59.0 kg
== END 2021-05-29 04:42 ==
LOC: ER 01:13
DX: S61.215A Laceration without foreign body of left ring finger without damage to nail, initial encounter (principal); S61.512A Laceration without foreign body of left wrist, initial encounter; S00.83XA Contusion of other part of head, initial encounter; I10 Essential (primary) hypertension; K21.9 Gastro-esophageal reflux disease without esophagitis; E11.9 Type 2 diabetes mellitus without complications; Z23 Encounter for immunization; Z91.013 Allergy to seafood; Z79.899 Other long term (current) drug therapy; W18.30XA Fall on same level, unspecified, initial encounter
CPT/HCPCS: 70450; 72125; 73130; 90471; 90714; 99284-25